=== PATIENT | female | born 1995 | race Caucasian/White ===

== ENCOUNTER 2017-08-02 18:13 | Emergency (ER) | payer SELFPAY ==
[~2017-08-02] VITALS: Ht 160 cm; Wt 124.6 kg
[~2017-08-02 18:13] MED LIST: AMOXICILLIN500 M1 PO; MOTRIN800 MG PO; NAPROSYN500 MG PO
[2017-08-02 20:31] VITALS: BP 98/62
== END 2017-08-02 20:32 | disposition home or self-care (01) ==
LOC: EME 18:13
DX: G43.909 Migraine, unspecified, not intractable, without status migrainosus (principal); F17.200 Nicotine dependence, unspecified, uncomplicated
CPT/HCPCS: 99281; 99284; J1200; J1885; J2765; J7030